=== PATIENT | male | born 1995 | race Caucasian/White ===

== ENCOUNTER 2016-08-13 15:15 | Emergency (ER) | payer MEDICAID ==
[2016-08-13 15:22] VITALS: BP 119/80; PULSE 84; RESP 16; TEMP 97.3; O2SAT 98
--- NOTE | 2016-08-13 15:36 | EDPHY ---
H & P Time Seen by Provider: 08/13/16 15:29 HPI/ROS: CHIEF COMPLAINT: Drainage from both eyes HISTORY OF PRESENT ILLNESS: 21-year-old male presents with bilateral eye redness and drainage. Onset sore throat, runny nose and a mild cough 1 week ago. The symptoms are resolving. Yesterday he developed left eye redness. He woke this morning with bilateral eye redness, associated with crusty drainage. No change in vision and no itchiness. Contact lens wearer. REVIEW OF SYSTEMS: General: No fever HEENT: No ear pain Respiratory: No shortness of breath Gastrointestinal: No vomiting Skin: No rash Neurologic: No headache Past Medical/Surgical History: Denies Social History: [employer] student Smoking Status: Current some day smoker Physical Exam: General Appearance: Alert, nontoxic Eyes: Pupils equal and round, no conjunctival injection, no drainage present ENT, Mouth: Mucous membranes moist, pharyngeal erythema Neck: Normal inspection, shotty adenopathy Respiratory: Lungs are clear to auscultation Cardiovascular: Regular rate and rhythm Neurological: A&O, nonfocal, normal gait Skin: Warm and dry Psychiatric: Mood and affect normal Constitutional: Initial Vital Signs Temperature (C) 36.3 C 08/13/16 15:20 Heart Rate 84 08/13/16 15:20 Respiratory Rate 16 08/13/16 15:20 Blood Pressure 119/80 08/13/16 15:20 O2 Sat (%) 98 08/13/16 15:20 O2 Delivery Mode Room Air Allergies/Adverse Reactions: No Known Allergies Allergy (Unverified 08/13/16 15:17) Home Medications: Medication Instructions Recorded Ofloxacin 0.3% [Ocuflox 0.3% (RX)] 2 drops EACHEYE Q6 #1 opht.btl 08/13/16 Departure - Departure Disposition: Home, Routine, Self-Care Clinical Impression: Acute upper respiratory infection Acute conjunctivitis of both eyes Qualifiers: Acute conjunctivitis type: bacterial Qualifier Code: (H10.33) Unspecified acute conjunctivitis, bilateral Condition: Good Instructions: Conjunctivitis (ED) Additional Instructions: Do not wear contacts until your symptoms have completely resolved. Referrals: Rk Dee MD [Medical Doctor] - 5-7 days, if not improved Stand Alone Forms: School Excuse Prescriptions: Ofloxacin 0.3% [Ocuflox 0.3% (RX)] 2 drops EACHEYE Q6 #1 opht.btl
== END 2016-08-13 15:41 | disposition home or self-care (01) ==
DX: H10.33 Unspecified acute conjunctivitis, bilateral (principal); J06.9 Acute upper respiratory infection, unspecified; F17.200 Nicotine dependence, unspecified, uncomplicated